=== PATIENT | female | born 1955 | race Caucasian/White ===

== ENCOUNTER 2017-12-07 11:47 | Inpatient (IN) | payer MEDICARE, MEDICAID ==
[~2017-12-07] VITALS: Ht 154.9 cm; Wt 70.9 kg
[~2017-12-07 11:47] MED LIST: ALBUTEROL S2.5 MG/.5 IN; CIPRO500 MG OR; CIPROFLOXACN500 MG PO; CLINDAMYCIN300 MG OR; DILAUDID8 MG OR; DURAGESIC100 MCG/H TD; LORTAB 5 OR; MORPHINE SUL RE; MORPHINE SUL100 MG OR; MORPHINE SUL15 M2 OR; MORPHINE SUL15 MG OR; NEURONTIN100 MG OR; ONDANSETRON4 MG OR; OXYCODONE30 MG OR; OXYCONTIN40 MG PO; PEPCID20 MG OR; PRAVACHOL20 MG PO; PREDNISONE5 MG OR; PREVACID30 M1 PO; PREVACID30 M2 OR; PYRIDIUM200 MG PO; SINGULAIR 10 MG10 MG PO; SMZ/TMP DS1 TAB PO; SOMA350 MG OR; TOPAMAX200 MG OR; VICODIN ES1 TAB OR; XANAX XR1 MG OR; XANAX1 MG OR; XOPENEX HFA; ZOFRAN4 MG OR; ZOLOFT100 MG OR
[2017-12-07 12:46] LABS: MEAN CORPUSCULAR HGB 32.5 pG CALC (26.0-32.0); MEAN CORPUSCULAR HGB CONC 34.8 g/L CALC (32.0-36.0); NEUT# 1.75 thou/uL (2.00-7.15); RED BLOOD COUNT 4.53 mill/uL (4.20-5.60); RED CELL DISTRI WIDTH 13.8 % (11.5-15.5)
[2017-12-07 12:47] LABS: HEMATOCRIT 42.2 % (37.0-47.0); HEMOGLOBIN 14.7 g/dl (12.0-16.0); MEAN CELL VOLUME 93.2 fL CALC (80.0-100.0)
[2017-12-07 13:06] LABS: ALBUMIN 5.1 g/dL (3.2-5.0); ALKALINE PHOSPHATASE 67 u/l (38-126); BILIRUBIN, TOTAL 0.9 mg/dL (0.0-1.4); BUN 9 mg/dL (8-23); BUN/CREATININE RATIO 16 (12-20 (CALC)); CARBON DIOXIDE 19 mmol/l (22-30); CHLORIDE 93 mmol/l (95-108); CREATININE 0.6 mg/dL (0.5-1.0); GFR > 60 ML/MIN (>=60 (CALC)); GFR FOR AFR.AMER. > 60 ML/MIN (>=60 (CALC)); LIPASE 85 u/l (23-300); POTASSIUM 4.1 mmol/l (3.5-5.1); SGPT/ALT 33 u/l (11-66)
[2017-12-07 13:07] LABS: ANION GAP 21 (6-22 (CALC)); SGOT/AST 56 u/l (9-36); SODIUM 129 mmol/l (137-146); TOTAL PROTEIN 9.6 g/dL (6.3-8.2)
[2017-12-07] MEDS ORDERED: CALTRATE 602 PO (14:19)
[2017-12-07] MEDS ORDERED: PREDNISONE10 MG PO (14:19)
[2017-12-07] MEDS ORDERED: SINGULAIR10 MG PO (14:19)
[2017-12-07] MEDS ORDERED: TRAZODONE50 MG PO (14:20)
[2017-12-07] MEDS ORDERED: VITAMIN D50000 UNIT (14:20)
[2017-12-07] MEDS ORDERED: MULT VITAMI1 PO (14:21)
[2017-12-07] MEDS ORDERED: B-12-SL1000 MCG SL (14:21)
[2017-12-07] MEDS ORDERED: FORTEO600 MCG/2. (14:22)
[2017-12-07] MEDS ORDERED: FLUOXETINE10 M2 PO (14:22)
[2017-12-07] MEDS ORDERED: LYRICA50 MG PO (14:23)
[2017-12-07] MEDS ORDERED: MELATONIN MAXIM10 MG (14:23)
[2017-12-07] MEDS ORDERED: KRISTALOSE10 GM PO (14:23)
[2017-12-07 15:33] VITALS: BP 160/71
[2017-12-07 18:51] VITALS: BP 145/68
[2017-12-08 06:00] VITALS: BP 123/49
[2017-12-08 06:06] LABS: HEMATOCRIT 40.1 % (37.0-47.0); HEMOGLOBIN 13.4 g/dl (12.0-16.0); MEAN CELL VOLUME 96.6 fL CALC (80.0-100.0); MEAN CORPUSCULAR HGB 32.3 pG CALC (26.0-32.0); MEAN CORPUSCULAR HGB CONC 33.4 g/L CALC (32.0-36.0); RED BLOOD COUNT 4.15 mill/uL (4.20-5.60)
[2017-12-08 06:30] LABS: ANION GAP 16 (6-22 (CALC)); BUN 11 mg/dL (8-23); BUN/CREATININE RATIO 20 (12-20 (CALC)); CARBON DIOXIDE 20 mmol/l (22-30); CHLORIDE 101 mmol/l (95-108); CREATININE 0.6 mg/dL (0.5-1.0); GFR > 60 ML/MIN (>=60 (CALC)); GFR FOR AFR.AMER. > 60 ML/MIN (>=60 (CALC)); MAGNESIUM 1.7 mg/dL (1.6-2.3); POTASSIUM 4.1 mmol/l (3.5-5.1); SODIUM 132 mmol/l (137-146)
[2017-12-08 08:43] VITALS: BP 160/59
[2017-12-08] MEDS ORDERED: LYRICA50 MG PO (15:47)
[2017-12-08] MEDS ORDERED: SOMA350 MG PO (15:47)
[2017-12-08] MEDS ORDERED: OXYCODONE30 MG PO (15:48)
[2017-12-08] MEDS ORDERED: XANAX0.5 MG PO (15:50)
[2017-12-08] MEDS ORDERED: OXYCONTIN PO (15:50)
[2017-12-08] MEDS ORDERED: TRAZODONE50 MG PO (15:57)
[2017-12-08 16:56] VITALS: BP 184/118
[2017-12-08 17:36] VITALS: BP 148/70
[2017-12-08 19:45] VITALS: BP 147/74
[2017-12-09 04:45] VITALS: BP 145/72
[2017-12-09 08:41] LABS: HEMATOCRIT 40.4 % (37.0-47.0); HEMOGLOBIN 13.5 g/dl (12.0-16.0); MEAN CELL VOLUME 96.4 fL CALC (80.0-100.0); MEAN CORPUSCULAR HGB 32.2 pG CALC (26.0-32.0); MEAN CORPUSCULAR HGB CONC 33.4 g/L CALC (32.0-36.0); RED BLOOD COUNT 4.19 mill/uL (4.20-5.60); RED CELL DISTRI WIDTH 14.4 % (11.5-15.5)
[2017-12-09 08:47] LABS: ANION GAP 13 (6-22 (CALC)); BUN 7 mg/dL (8-23); BUN/CREATININE RATIO 14 (12-20 (CALC)); CARBON DIOXIDE 24 mmol/l (22-30); CHLORIDE 107 mmol/l (95-108); CREATININE 0.5 mg/dL (0.5-1.0); GFR > 60 ML/MIN (>=60 (CALC)); GFR FOR AFR.AMER. > 60 ML/MIN (>=60 (CALC)); MAGNESIUM 1.9 mg/dL (1.6-2.3); POTASSIUM 3.5 mmol/l (3.5-5.1)
[2017-12-09 08:49] LABS: SODIUM 140 mmol/l (137-146)
[2017-12-09 08:52] VITALS: BP 172/62
[2017-12-09 09:36] VITALS: BP 151/59
[2017-12-09] MEDS ORDERED: OXYCONTIN40 MG PO (10:52)
[2017-12-09] MEDS ORDERED: LISINOPRIL20 M1 PO ×2 (12:25→12:45)
[2017-12-09 13:58] VITALS: BP 131/67
== END 2017-12-09 14:38 | disposition home or self-care (01) | DRG 103 ==
LOC: ED 11:47 → ED-I 13:41 → ED 14:16 → MS2 14:17
PROVIDERS: Emergency Medicine; Nurse Practitioner; ADMIT Internal Medicine; ATTEND Internal Medicine
DX: G43.919 Migraine, unspecified, intractable, without status migrainosus (principal); E87.1 Hypo-osmolality and hyponatremia; M41.9 Scoliosis, unspecified; Z98.1 Arthrodesis status; M81.0 Age-related osteoporosis without current pathological fracture
CPT/HCPCS: J1650